=== PATIENT | female | born 1945 | race Two or more races ===

== ENCOUNTER → 2022-11-26 | Emergency (ER) | payer OTHER ==
[~2022-11-26] VITALS: Ht 167.6 cm; Wt 70.3 kg
[~2022-11-26] MED LIST: CIPRO500 MG PO; PYRIDIUM DS200 MG PO
== END | disposition home or self-care (01) ==
LOC: ER 08:23
DX: N39.0 Urinary tract infection, site not specified (principal); R31.0 Gross hematuria; B96.89 Other specified bacterial agents as the cause of diseases classified elsewhere

== ENCOUNTER 2024-09-26 08:43 | Outpatient (CLI) | payer OTHER | END 2024-09-26 08:45 | disposition home or self-care (01) | LOC: SONOGRAMA 08:43 | PROVIDERS: ATTEND Pathology Anatomic Pathology | DX: E04.1 Nontoxic single thyroid nodule (principal); D34 Benign neoplasm of thyroid gland; E07.89 Other specified disorders of thyroid ==